=== PATIENT | female | born 1990 | race Caucasian/White ===

== ENCOUNTER 2024-02-14 20:13 | Emergency (ER) | payer MEDICAID ==
[~2024-02-14] VITALS: Ht 170.2 cm; Wt 92.0 kg
[2024-02-14 20:22] VITALS: O2SAT 100
[2024-02-14] MEDS: ACETAMINOPHEN 500MG TABLET PO ONE (23:22)
[2024-02-15] MEDS: KETOROLAC 30MG/ML VIAL IM ONE (00:33)
[2024-02-15] MEDS ORDERED: ACET-2708 MT (00:58)
[2024-02-15] MEDS ORDERED: GUAI600T26 MT (00:58)
[2024-02-15 01:10] VITALS: BP 127/72; PULSE 88; RESP 20; TEMP 99.6
[2024-02-15 01:34] LABS: CLARITY URINE TURBID (CLEAR); COLOR URINE YELLOW (YELLOW); GLUCOSE URINE NEGATIVE (NEGATIVE); KETONES URINE NEGATIVE (NEGATIVE); LEUKOCYTE ESTERASE URINE NEGATIVE (NEGATIVE); NITRITE URINE NEGATIVE (NEGATIVE); OCCULT BLOOD URINE NEGATIVE (NEGATIVE); PH URINE 5.5 (4.5-8.0); PROTEIN URINE NEGATIVE (NEGATIVE); SPECIFIC GRAVITY URINE 1.021 (1.005-1.030); UROBILINOGEN URINE 0.2 E.U./dL (0.2-1.0)
[2024-02-15 01:44] LABS: BACTERIA URINE TRACE; MUCUS URINE 1+ /lpf (< = 2+); RBC URINE 0-2 /hpf (0-2); SQUAMOUS EPITHELIAL CELL URINE 1+ /lpf (RARE/1+); WBC URINE 0-2 /hpf (0-2)
== END 2024-02-15 01:10 | disposition home or self-care (01) ==
LOC: ER 20:13
DX: U07.1 COVID-19 (principal); B34.9 Viral infection, unspecified; Z98.890 Other specified postprocedural states; Z86.39 Personal history of other endocrine, nutritional and metabolic disease
CPT/HCPCS: 99284; 71045; 87426; 87804 ×2; 81003; 96372; J1885

== ENCOUNTER 2024-03-15 15:13 | Emergency (ER) | payer MEDICAID ==
[~2024-03-15] VITALS: Ht 162.6 cm; Wt 92.0 kg
[~2024-03-15 15:13] MED LIST: ACET-2708 MT; GUAI600T26 MT
[2024-03-15 15:23] VITALS: TEMP 98.5; O2SAT 100
[2024-03-15] MEDS ORDERED: METH-653 MT (18:07)
[2024-03-15 18:55] VITALS: BP 142/85; PULSE 89; RESP 18
[2024-03-15] MEDS: IBUPROFEN 600MG TABLET PO ONE (18:55)
== END 2024-03-15 18:56 | disposition home or self-care (01) ==
LOC: ER 15:13
DX: M54.50 Low back pain, unspecified (principal)
CPT/HCPCS: 99283

== ENCOUNTER 2024-04-22 15:35 | Emergency (ER) | payer MEDICAID ==
[~2024-04-22] VITALS: Ht 157.5 cm; Wt 93.0 kg
[~2024-04-22 15:35] MED LIST changes: +METH-653 MT
[2024-04-22 15:39] VITALS: O2SAT 100
[2024-04-22 16:50] LABS: BASOPHILS % 0.4 % (0.0-2.0); CHLORIDE 108 mEq/L (98-107); EOSINOPHILS % 1.7 % (0.0-5.0); HEMATOCRIT. 37.1 % (36.0-48.0); MEAN CORPUSCULAR HEMOGLOBIN 29.1 pg (28.0-32.0); MEAN CORPUSCULAR HGB CONC 32.4 g/dL (31.0-37.0); MEAN CORPUSCULAR VOLUME 89.7 fL (81.0-99.0); MONOCYTES % 7.9 % (2.0-8.0); POTASSIUM 3.9 mEq/L (3.5-5.1); RED BLOOD CELL COUNT 4.14 mill/uL (4.2-5.4); RED CELL DISTRIBUTION WIDTH 14.1 % (11.6-14.6); SODIUM 139 mEq/L (136-145); WHITE BLOOD COUNT 8.3 x1000/uL (4.5-11.0)
[2024-04-22 16:51] LABS: CARBON DIOXIDE 26 mEq/L (21-32)
[2024-04-22 16:56] LABS: CREATININE 0.9 mg/dL (0.6-1.0); DIFFERENTIAL COMMENT 1; GLUCOSE 92 mg/dL (70-105); UREA NITROGEN BLOOD 11 mg/dL (9-23)
[2024-04-22 17:21] LABS: MEAN PLATELET VOLUME 11.8 fl (7.4-10.4); PLATELET 140 x1000/uL (130-400)
[2024-04-22 17:33] VITALS: BP 111/69; PULSE 71; RESP 18; TEMP 98.7
== END 2024-04-22 17:34 | disposition home or self-care (01) ==
LOC: ER 15:35
DX: R19.7 Diarrhea, unspecified (principal); Z86.39 Personal history of other endocrine, nutritional and metabolic disease; Z98.890 Other specified postprocedural states
CPT/HCPCS: 36415; 80048; 85025; 99283